=== PATIENT | female | born 1990 | race Caucasian/White ===

== ENCOUNTER 2016-11-28 16:11 | Emergency (ER) | payer OTHER ==
[~2016-11-28] VITALS: Ht 157.5 cm; Wt 133.3 kg
[~2016-11-28 16:11] MED LIST: DEPO-PROVER150 MG/ML IM; DOXEPIN HCL10 MG PO; ENDOCET 5-3251 EACH PO; FERROUS SULFAT325 MG PO; IBUPROFEN800 MG PO; MOTRIN800 MG PO; NOHOMEMEDS; PEN-VEE K,VEET500 MG PO; PRENATAL TABLE1 EAC3 PO; PROZAC10 M1 PO; SPRINTEC1 EACH PO; TRAZODONE; TUMS500 MG PO
[2016-11-28 18:04] LABS: HEMATOCRIT 35.8 % (36.0-46.0); MCH 26.7 PG (29.0-34.0); MCHC 31.3 G/DL (30.0-36.0); MCV 85.2 FL (83-99); MEAN PLAT.VOLUME 10.4 uM^3 (9.5-12.4); PLATELET COUNT 290 K/uL (156-360); RBC DIS.WIDTH-CV 14.8 % (11.8-14.6); RBC DIS.WIDTH-SD 46.3 % (39-53); WHITE BLOOD COUNT 10.9 K/uL (4.1-10.2)
[2016-11-28 18:11] LABS: CHLORIDE 107 mEq/L (99-109); POTASSIUM 3.9 mEq/L (3.7-5.4); SODIUM 137 mEq/L (136-147)
[2016-11-28 18:13] LABS: GLUCOSE 93 mg/dL (70-99)
[2016-11-28 18:14] LABS: ANION GAP 8 MEQ/L (2-14)
[2016-11-28 18:15] LABS: TOTAL BILIRUBIN 0.4 mg/dL (0.0-1.0)
[2016-11-28 18:16] LABS: ADD MIUA? YES; BILIRUBIN NEGATIVE; BLOOD NEGATIVE; COLOR YELLOW ((YELLOW)); GLUCOSE (STRIP) NEGATIVE; KETONES NEGATIVE; LEUKOCYTES NEGATIVE; NITRITE NEGATIVE; PROTEIN (STRIP) 30; SPECIFIC GRAVITY 1.034 (1.000-1.030)
[2016-11-28 18:16] LABS: ALKALINE PHOSPHATASE 89 IU/L (3-129)
[2016-11-28 18:17] LABS: GFR ESTIMATE (CALCULATED) > 59 mL/min/
[2016-11-28 18:18] LABS: UREA NITROGEN (BUN) 11 mg/dL (9-23)
[2016-11-28 18:20] LABS: LIPASE 10 U/L (1.0-51.0)
[2016-11-28 18:27] LABS: QUANTITATIVE HCG < 4.0 MIU/ML
[2016-11-28 18:29] LABS: BACTERIA RARE /HPF; EPITHELIAL CELLS 1+ /HPF; MUCUS 2+ /LPF; RED BLOOD CELLS 0-5 /HPF (0-5); WHITE BLOOD CELLS 0-5 /HPF (0-5)
[2016-11-28] MEDS ORDERED: BENTYL20 MG PO (18:43)
[2016-11-28] MEDS ORDERED: ZOFRAN ODT4 MG PO (18:43)
[2016-11-28 18:59] VITALS: BP 125/83
== END 2016-11-28 19:08 | disposition home or self-care (01) ==
LOC: EME 16:11
PROVIDERS: Nurse Practitioner Family
DX: R10.31 Right lower quadrant pain (principal); E86.0 Dehydration; F41.9 Anxiety disorder, unspecified; F32.9 Major depressive disorder, single episode, unspecified; Z87.891 Personal history of nicotine dependence; Z88.8 Allergy status to other drugs, medicaments and biological substances
CPT/HCPCS: 80053; 81003; 83690; 84702; 85027; 99281; 99283